=== PATIENT | male | born 1995 | race Hispanic/Latino ===

== ENCOUNTER 2023-01-15 18:52 | Emergency (ER) | payer SELFPAY ==
[2023-01-15] MEDS ORDERED: NA CHLORIDE 0.9% 1,000 ML ONE (19:47)
[2023-01-15] MEDS ORDERED: ONDANSETRON 4 MG/2 ML VIAL ONE (20:03)
[2023-01-15] MEDS ORDERED: FAMOTIDINE 20 MG/2 ML VIAL IV ONE (20:03)
[2023-01-15 20:12] LABS: Absolute Lymphocytes (CBC) 1.4 K/uL (0.7-4.9); Hematocrit 44.1 % (39.6-49.0); Lymphocytes % 12.8 % (15.3-44.8); MCV 82.5 fL (80-100); RBC Red Blood Cell Count 5.34 M/uL (4.33-5.43)
[2023-01-15 20:38] LABS: Albumin 3.9 g/dL (3.4-5.0); Bilirubin Total 0.6 mg/dL (0.2-1.0); Potassium 3.4 mEq/L (3.5-5.1); Protein, Total 7.8 g/dL (6.4-8.2)
--- NOTE | 2023-01-15 21:20 | RAD REPORT ---
EXAM DESCRIPTION: CT - Abdomen Pelvis W Contrast - 01/15/2023 8:58 pm CLINICAL HISTORY: Abdominal pain COMPARISON: none. TECHNIQUE: Computed axial tomography of the abdomen pelvis was obtained. 100 cc Isovue-300 was admin istered intravenously. Oral contrast was not requested which limits evaluation of bowel and appendix All CT scans are performed using dose optimization technique as appropriate and may include automated exposure control or mA/KV adjustment according to patient size. FINDINGS: Mild fatty infiltration. Spleen, pancreas, adrenal and kidneys appear unremarkable. There is no evidence of diverticulitis. Normal appendix Small umbilical hernia IMPRESSION: Mild fatty infiltration
[2023-01-15 21:36] LABS: Specific Gravity 1.023 (1.005-1.030); Urine Bacteria None Seen /HPF (<20); Urine Bilirubin NEGATIVE (Negative); Urine Blood Negative (Negative); Urine Clarity Clear (Clear); Urine Color Light-Yellow (Yellow); Urine Glucose NEGATIVE (Negative); Urine Mucus Slight /HPF (None Seen); Urine Protein TRACE (Negative); Urine RBC <5 /HPF (None Seen); Urine Urobilinogen Normal (Normal)
[2023-01-15] MEDS ORDERED: POTASSIUM 25 MEQ EFFERV TAB ONE (21:46)
--- NOTE | 2023-01-15 22:16 | ER ---
Nurse's Notes [facility] Name: Fermin Guerra Age: 27 yrs Sex: Male : 1995 Arrival Date: 01/15/2023 Time: 18:52 Bed 11 Private MD: Diagnosis: Nausea with vomiting, unspecified;Abdominal pain, unspecified Presentation: 01/15 19:14 Chief complaint: Patient states: abdominal pain vomiting and fever since 3 am this morning emesis x 7 today. Coronavirus screen: Vaccine status: Patient reports receiving the 1st dose of the Covid vaccine. Ebola Screen: Patient negative for fever greater than or equal to 101.5 degrees Fahrenheit, and additional compatible Ebola Virus Disease symptoms. Initial Sepsis Screen: Does the patient meet any 2 criteria? HR > 90 bpm. Does the patient have a suspected source of infection? No. Patient's initial sepsis screen is negative. Risk Assessment: Do you want to hurt yourself or someone else? Patient reports no desire to harm self or others. Onset of symptoms was January 15, 2023 at 03:00. 19:14 Method Of Arrival: Ambulatory 19:14 Acuity: ROSANNE 3 Triage Assessment: 19:16 Headache History: The patient has had previous headaches and this one is different than previous episodes, and this one is more severe than previous episodes. General: Appears ill, well groomed, well developed, Behavior is calm, cooperative. Pain: Complains of pain in head, abdominal pain generalized body aches Pain currently is 9 out of 10 on a pain scale. Also complains of inability to concentrate. Pain: Pain began gradually. 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 Gait is steady, Speech is normal, Facial symmetry appears normal, Pupils are PERRLA. Historical: - Allergies: 19:16 No Known Allergies; - Home Meds: 19:16 None [Active]; kl - PMHx: 19:16 None; - PSHx: 19:16 None; - Immunization history:: Adult Immunizations not up to date. - Social history:: Smoking status: Patient reports the use of cigarette tobacco products, smokes one pack cigarettes per day. Reported history of juuling and/or vaping. Screenin:53 [facility] ED Fall Risk Assessment (Adult) History of falling in the last 3 months, kl including since admission No falls in past 3 months (0 pts) Confusion or Disorientation No (0 pts) Intoxicated or Sedated No (0 pts) Impaired Gait No (0 pts) Mobility Assist Device Used No (0 pt) Altered Elimination No (0 pt) Score/Fall Risk Level 0 - 2 = Low Risk Oriented to surroundings, Maintained a safe environment. Abuse screen: Denies threats or abuse. Nutritional screening: No deficits noted. Tuberculosis screening: No symptoms or risk factors identified. Assessment: 19:52 Reassessment: see triage note. General: Appears ill. Pain:. kl 21:15 Reassessment: Patient appears in no apparent distress at this time. Patient is alert, kl oriented x 3, equal unlabored respirations, skin warm/dry/pink. Patient states feeling better. Patient states symptoms have improved. Vital Signs: 19:14 BP 123 / 85; Pulse 98; Resp 18; Temp 100; Pulse Ox 97% on R/A; Weight 113.4 kg; Height kl 5 ft. 7 in. ; Pain 4/10; 21:43 BP 116 / 64; Pulse 84; Resp 16; Pulse Ox 100% ; mb9 22:00 BP 113 / 64; kl 22:00 BP 99 / 51; Pulse 78; Resp 18; Temp 99(O); kl 19:14 Body Mass Index 39.16 (113.40 kg, 170.18 cm) kl 19:14 Pain Scale: Adult ED Course: 18:53 Patient arrived in ED. am2 19:05 Lars Chakraborty PA is PHCP. cp 19:05 Lars Sanchez MD is Attending Physician. cp 19:16 Triage completed. kl 19:47 Missed attempt(s): 20 gauge in right antecubital area. bc6 19:48 Missed attempt(s): 22 gauge in right forearm. bc6 19:52 Inserted saline lock: 22 gauge in right forearm, using aseptic technique. kl 19:53 Patient has correct armband on for positive identification. Bed in low position. Call kl light in reach. Side rails up X2. 21:00 CT Abd/Pelvis - IV Contrast Only In Process Unspecified. EDMS 22:39 No provider procedures requiring assistance completed. IV discontinued, intact, kl bleeding controlled, No redness/swelling at site. Pressure dressing applied. Administered Medications: 19:52 Drug: NS 0.9% IV 1000 ml Route: IV; Rate: 1 bolus; Site: right forearm; kl 21:00 Follow up: IV Status: Completed infusion; IV Intake: 1000ml kl 20:06 Drug: Famotidine IVP 20 mg Route: IVP; Site: right forearm; kl 22:40 Follow up: Response: No adverse reaction; Marked relief of symptoms kl 20:07 Drug: Ondansetron IVP 4 mg Route: IVP; Site: right forearm; kl 22:40 Follow up: Response: No adverse reaction; Marked relief of symptoms kl 21:43 Drug: Potassium PO Effervescent Tablet 25 mEq Route: PO; mb9 22:40 Follow up: Response: No adverse reaction Medication: 19:53 VIS not applicable for this client. kl Intake: 21:00 IV: 1000ml; Total: 1000ml. Outcome: 22:15 Discharge ordered by . paige 22:40 Patient left the ED. Signatures: Dispatcher [employer] EDMS Trinity Raymond RN RN Lars Qureshi PA PA Laverne Ramos Mary Beth, RN RN mb9 Wendi Celestin6
--- NOTE | 2023-01-15 22:16 | EDPHYS ---
Physician Documentation [facility] Name: Fermin Guerra Age: 27 yrs Sex: Male : 1995 Arrival Date: 01/15/2023 Time: 18:52 Bed 11 Private MD: ED Physician Lars Sanchez HPI: 01/15 19:55 This 27 yrs old Male presents to ER via Ambulatory with complaints of Fever, cp Headache, Nausea/Vomiting, bodyaches, Abdominal Pain. Historical: - Allergies: 19:16 No Known Allergies; kl - Home Meds: 19:16 None [Active]; kl - PMHx: 19:16 None; kl - PSHx: 19:16 None; kl - Immunization history:: Adult Immunizations not up to date. - Social history:: Smoking status: Patient reports the use of cigarette tobacco products, smokes one pack cigarettes per day. Reported history of juuling and/or vaping. Vital Signs: 19:14 BP 123 / 85; Pulse 98; Resp 18; Temp 100; Pulse Ox 97% on R/A; Weight 113.4 kg; Height kl 5 ft. 7 in. ; Pain 4/10; 21:43 BP 116 / 64; Pulse 84; Resp 16; Pulse Ox 100% ; mb9 22:00 BP 113 / 64; kl 22:00 BP 99 / 51; Pulse 78; Resp 18; Temp 99(O); kl 19:14 Body Mass Index 39.16 (113.40 kg, 170.18 cm) kl 19:14 Pain Scale: Adult kl MDM: 19:22 Patient medically screened. 01/15 19:54 Order name: Influenza Screen (a \T\ B); Complete Time: 22:14 01/15 22:14 Interpretation: Reviewed. 01/15 19:54 Order name: COVID-19 SARS RT PCR; Complete Time: 21:26 01/15 21:26 Interpretation: Reviewed. 01/15 19:54 Order name: CBC with Diff; Complete Time: 21:26 01/15 21:26 Interpretation: Normal except: NEO% 78.7; LYM% 12.8; NEUT A 8.4. 01/15 19:54 Order name: CMP; Complete Time: 21:26 01/15 21:26 Interpretation: Normal except: NA 133; K 3.4; GLOB 3.9; A/G 1.0. 01/15 19:54 Order name: Lipase; Complete Time: 21:26 01/15 21:26 Interpretation: Reviewed. 01/15 19:54 Order name: Urinalysis W/Microscopic; Complete Time: 22:14 cp 01/15 22:14 Interpretation: Normal except: UPROT TRACE; UESTR 75. 01/15 19:54 Order name: CT Abd/Pelvis - IV Contrast Only; Complete Time: 21:26 01/15 21:27 Interpretation: Report reviewed. 01/15 19:54 Order name: IV Saline Lock; Complete Time: 21:06 01/15 19:54 Order name: Labs collected and sent; Complete Time: 21:06 Administered Medications: 19:52 Drug: NS 0.9% IV 1000 ml Route: IV; Rate: 1 bolus; Site: right forearm; kl 21:00 Follow up: IV Status: Completed infusion; IV Intake: 1000ml kl 20:06 Drug: Famotidine IVP 20 mg Route: IVP; Site: right forearm; kl 22:40 Follow up: Response: No adverse reaction; Marked relief of symptoms kl 20:07 Drug: Ondansetron IVP 4 mg Route: IVP; Site: right forearm; kl 22:40 Follow up: Response: No adverse reaction; Marked relief of symptoms kl 21:43 Drug: Potassium PO Effervescent Tablet 25 mEq Route: PO; mb9 22:40 Follow up: Response: No adverse reaction kl Disposition Summary: 01/15/23 22:15 Discharge Ordered Location: Home cp Problem: new cp Symptoms: have improved cp Condition: Stable cp Diagnosis - Nausea with vomiting, unspecified cp - Abdominal pain, unspecified cp Followup: cp - With: Private Physician - When: 1 - 2 days - Reason: Worsening of condition Discharge Instructions: - Discharge Summary Sheet cp - Abdominal Pain, Adult cp - Nausea and Vomiting, Adult cp Forms: - Work release form kl - Medication Reconciliation Form cp - Thank You Letter cp - Antibiotic Education cp - Prescription Opioid Use cp Prescriptions: - Pepcid 20 mg Oral Tablet - take 1 tablet by ORAL route every 12 hours for 5 days; 10 tablet; Refills: 0, cp Product Selection Permitted - Zofran 4 mg Oral Tablet - take 1 tablet by ORAL route every 12 hours As needed; 20 tablet; Refills: 0, cp Product Selection Permitted Signatures: Dispatcher [employer] Trinity Hernandez, RN RN Lars Qureshi PA PA cp Breneman, Mary Beth RN RN mb9
[2023-01-15 23:07] VITALS: O2SAT 100
[2023-01-15 23:08] VITALS: BP 99/51; TEMP 99
== END 2023-01-15 22:40 | disposition home or self-care (01) ==
LOC: ER 18:52
DX: R11.2 Nausea with vomiting, unspecified (principal); R10.9 Unspecified abdominal pain
CPT/HCPCS: 36415; 74177; 80053; 81001; 83690; 85025; 87804; J2405; J7030; Q9967; U0003

== ENCOUNTER 2024-12-25 14:37 | Emergency (ER) | payer SELFPAY ==
--- OUTSIDE RECORDS SUMMARY | 2024-12-25 14:40 | XMS REPORT | Continuity of Care Document ---
Author Name Unknown Address [address] [place] [address] [facility] Address [address] [place] [address] Care Team Providers Care Director Of Provider Relations Name Role Phone Pcp, Patient Does Not Have A Primary Care Physic tiffanie Mir Ferrera DO Attending Clinician [phone] CHARANJIT RIGGS Attending Clinician Unavailable Charanjit Riggs MD Attending Clinician [phone] Magy Narayan DO Attending Clinician [phone] MAGY NARAYAN Attending Clinician UnavailCOCO Alvarez Attending Clinician Un available CHARANJIT RIGGS Admitting Clinician Unavailable Problems Condition Name Condition Details Condition Category Status Onset Date Resolution Date Last Treatment Date Treating Clinician Comments Source No known active problems No known active problems Disease [facility] Allergies, Adverse Reactions, Alerts Allergy Name Allergy Type Status Severity Reaction(s) Onset Date Inactive Date Treating Clinician Comments Source NO KNOWN ALLERGIE S Drug Class Active [facility] Social History Social Habit Start Date Stop Date Quantity Comments Source Exposure to SARS-CoV-2 (event) 2022-05-07 00:00:00 2022-05-17 12:44:00 Not sure [facility] Sex Assigned At 1995 00:00:1995 00:00:00 [facility] Smoking Status Start Date Stop Date Source Tobacco smoking consumption unknown [facility] Medications Ordered Medication Name Filled Medication Name Start Date Stop Date Current Medication? Ordering Clinician Indication Dosage Frequency Signature (SIG) Comments Components Source naproxen 500 mg tablet 05-17 00:00: 00 05-28 04:59 :00 No [id number] 500mg Take 1 tablet by mouth in the morning and 1 tablet in the evening. Take with meals. Do all this for 10 days. [facility] HYDROcodone -acetaminop hen (NORCO) 7.5-325 mg per tablet 05-17 00:00: 00 05-25 04:59 :00 No [id number] 1{tbl} Take 1 tablet by mouth every 8 (eight) hours as needed for Pain for up to 7 days. Indication s: acute pain [facility] ibuprofen (IBU) tablet 600 mg 04-06 12:30: 00 04-06 12:27 :00 No 600mg 600 mg, Oral, ONCE, 1 dose, On 04/06/22 at 0730, KALYANI [facility] No known medications 04-06 07:18: 58 No No known medication s [facility] Vital Signs Vital Name Observation Time Observation Value Comments S paco Systolic blood pressure 2022-05-17 17:53:00 130 mm[Hg] [facility] Diastolic blood pressure 2022-05-17 17:53:00 78 mm[Hg] [facility] Heart rate 2022-05-17 17:53:00 77 /min [facility] Body temperature 2022-05-17 17:53:00 37.28 Evelin [facility] Respiratory rate 2022-05-17 17:53:00 16 /min [facility] Body height 2022-05-17 17:53:00 170.2 cm [facility] Body weight 2022-05-17 17:53:00 111.131 kg [facility] BMI 2022-05-17 17:53:00 38.37 kg/m2 [facility] Oxygen saturation in Arterial blood by Pulse oximetry 2022-05-17 17:53:00 96 /min [facility] Systolic blood pressure 2022-04-06 12:19:00 158 mm[Hg] [facility] Diastolic blood pressure 2022-04-06 12:19:00 80 mm[Hg] [facility] Heart rate 2022-04-06 12:19:00 102 /min [facility] Body temperature 2022-04-06 12:19:00 38.5 Evelin [facility] Respiratory rate 2022-04-06 12:19:00 22 /min [facility] Body weight 2022-04-06 12:19:00 100.245 kg [facility] BMI 2022-04-06 12:19:00 35.67 kg/m2 [facility] Oxygen saturation in Arterial blood by Pulse oximetry 2022-04-06 12:19:00 98 /min [facility] Procedures Procedure Date / Time Performed Performing Clinicia n Source EKG-12 LEAD 2022-05-28 04:18:57 Mir Ferrera [facility] XR TIBIA FIBULA 2 VW LEFT 2022-05-17 19:58:40 Charanjit Riggs [facility] XR ANKLE 3+ VW LEFT 2022-05-17 18:54:26 Chun Riggs [facility] XR FOOT 3+ VW LEFT 2022-05-17 18:54:26 Charanjit Riggs [facility] CONSENT/REFUSAL FOR DIAGNOSIS AND TREATMENT 2022-05-17 17:51:47 Doctor Unassigned, Marana [facility] COVID-19 (ID NOW RAPID TESTING) 2022-04-06 12:25:00 Magy Narayan [facility] NOTICE OF PRIVACY PRACTICES 2022-04-06 12:12:54 Doctor Unassigned, [place] [facility] Encounters Start Date/Time End Date/Time Encounter Type Admission Type Attending Clinicians Care Facility Care Department Encounter ID Source 2022-12-10 15:26:18 2022-12-10 15:26:18 Outpatient [facility] [id number] Farhad Gentile 2022-05-27 00:00:00 2022-05-27 00:00:00 Orders Only Mir Ferrera [facility] [id number] [facility] 2022-05-17 12:56:00 2022-05-17 16:35:00 Emergency X CHARANJIT RIGGS [facility] ERT [id number] [facility] 2022-05-17 12:56:00 2022-05-17 16:35:00 Emergency Charanjit Riggs [facility] [id number] [facility] 2022-04-06 07:20:00 2022-04-06 08:01:00 Emergency Magy Narayan [facility] [id number] [facility] 2022-04-06 07:20:00 2022-04-06 08:01:00 Emergency MAGY FORDE [facility] ERT [id number] [facility] 2020-01-04 21:26:00 2020-01-05 02:04:00 Emergency COCO WARD [address] [facility] [id number]
[2024-12-25 15:13] LABS: Absolute Eosinophils 0.1 K/uL (0-0.5); Absolute Monocytes 0.6 K/uL (0.1-1.3); Absolute Neutrophil 12.5 K/uL (1.8-8.0); Basophils % 0.2 % (0-1.3); Eosinophils % 0.8 % (0-4.4); Hematocrit 44.9 % (39.6-49.0); Hemoglobin 15.7 g/dL (13.6-17.9); Lymphocytes % 7.1 % (15.3-44.8); MCH 28.7 pg (27.0-35.0); MCHC 34.9 g/dL (32.0-36.0); MCV 82.2 fL (80-100); MPV 8.2 fL (7.6-11.3); Monocytes % 4.3 % (3.3-12.3); Neutrophils % 87.6 % (41.7-73.7); Platelets 262 thou/uL (152-406); RBC Red Blood Cell Count 5.46 M/uL (4.33-5.43); Red Cell Distribution Width 13.7 % (12.1-15.2)
[2024-12-25] MEDS ORDERED: ASPIRIN 81 MG CHEWABLE TABLET ONE (15:24)
[2024-12-25] MEDS ORDERED: FAMOTIDINE 20 MG/2 ML VIAL IV ONE (15:25)
[2024-12-25] MEDS ORDERED: MORPHINE 4 MG/ML SYR ONE (15:25)
[2024-12-25 15:31] LABS: ALT/SGPT 65 U/L (16-61); AST/SGOT 24 U/L (15-37); Alkaline Phosphatase 104 U/L (45-117); Anion Gap 8.6 mEq/L (5.0-15.0); BUN Blood Urea Nitrogen 13 mg/dL (7-18); Bicarbonate 25 mEq/L (21-32); Bilirubin Direct < 0.2 mg/dL (0-0.2); Bilirubin Indirect, Calculated 0.4 mg/dL (0.2-0.8); Bilirubin Total 0.6 mg/dL (0.2-1.0); Glomerular Filtration Rate 98 ml/min (=/>90); Glucose Level 115 mg/dL (74-106); Magnesium 1.8 mg/dL (1.6-2.4); NT PRO-BNP 6 pg/mL (<125); Potassium 3.6 mEq/L (3.5-5.1); Sodium Level 136 mEq/L (136-145); Troponin High Sensitivity < 3.0 pg/mL (<58.9)
--- NOTE | 2024-12-25 15:45 | RAD REPORT ---
Procedure: Chest Single View HISTORY: Chest pain COMPARISON: none FINDINGS: The lungs appear clear of acute infiltrate. No significant pleural effusion noted. The heart is normal size. IMPRESSION: No acute abnormality is displayed.
[2024-12-25 16:00] LABS: PT Prothrombin Time 12.7 SECONDS (10-13.0); Protime INR 1.12
[2024-12-25 16:01] LABS: D-Dimer 0.234 FEUug/mL (0-0.500)
[2024-12-25 17:15] LABS: Blood Morphology Comment NOT SEEN (NOT SEEN); Platelet Estimate ADEQ; White Blood Cell Scan OK (OK)
[2024-12-25] MEDS ORDERED: METOCLOPRAMIDE 10 MG/2mL INJ ONE (17:35)
[2024-12-25] MEDS ORDERED: KETOROLAC 30 MG/ML INJ ONE (17:35)
[2024-12-25] MEDS ORDERED: NA CHLORIDE 0.9% 500 ML ONE (17:35)
--- NOTE | 2024-12-25 18:33 | ER ---
Nurse's Notes [facility] Name: Fermin Guerra Age: 29 yrs Sex: Male : 1995 Arrival Date: 12/25/2024 Time: 14:37 Bed 6 Private MD: Diagnosis: Chest pain, unspecified;Shortness of breath;Dizziness and giddiness Presentation: 12/25 14:49 Chief complaint: Patient states: Left sided chest pain, shortness of breath, dizziness cm10 and feeling like he is going to pass out onset today at 0840. Coronavirus screen: Client denies travel out of the [place] in the last 14 days. Ebola Screen: Patient denies travel to an Ebola-affected area in the 21 days before illness onset. Initial Sepsis Screen: Does the patient meet any 2 criteria? No. Patient's initial sepsis screen is negative. Does the patient have a suspected source of infection? No. Patient's initial sepsis screen is negative. Risk Assessment: Do you want to hurt yourself or someone else? Patient reports desire/thoughts of hurting themselves or someone else. Provider notified. Onset of symptoms was December 25, 2024. 14:49 Method Of Arrival: Ambulatory cm10 14:49 Acuity: ROSANNE 2 cm10 Triage Assessment: 14:51 General: Appears uncomfortable, Behavior is cooperative. Neuro: No deficits noted. cm10 Level of Consciousness is awake, alert, obeys commands, Oriented to person, place, time, situation, Appropriate for age. Neuro: Reports dizziness. Respiratory: No deficits noted. Airway is patent Respiratory effort is even, unlabored, Respiratory pattern is regular, symmetrical. Historical: - Allergies: 14:50 No Known Allergies; cm10 - PMHx: 14:50 None; cm10 - Immunization history:: Adult Immunizations up to date. - Infectious Disease History:: Denies. - Social history:: Smoking status: unknown. Screenin:00 [facility] ED Fall Risk Assessment (Adult) History of falling in the last 3 months, jl7 including since admission No falls in past 3 months (0 pts) Confusion or Disorientation No (0 pts) Intoxicated or Sedated No (0 pts) Impaired Gait No (0 pts) Mobility Assist Device Used No (0 pt) Altered Elimination No (0 pt) Score/Fall Risk Level 0 - 2 = Low Risk Oriented to surroundings, Maintained a safe environment. Abuse screen: Denies threats or abuse. Denies injuries from another. Nutritional screening: No deficits noted. Tuberculosis screening: No symptoms or risk factors identified. Assessment: 15:00 General: Appears in no apparent distress. uncomfortable, Behavior is cooperative, jl7 anxious. Pain: Complains of pain in anterior aspect of left upper chest, left breast, right upper quadrant and left upper quadrant Pain does not radiate. Pain currently is 9 out of 10 on a pain scale. Pain began gradually. Neuro: Level of Consciousness is awake, alert, obeys commands, Oriented to person, place, time, situation. Cardiovascular: Patient's skin is warm and dry. Respiratory: Airway is patent Respiratory effort is even, unlabored, Respiratory pattern is regular, symmetrical. Derm: Skin is pink, warm \T\ dry. 16:39 Reassessment: Patient appears in no apparent distress at this time. No changes from jl7 previously documented assessment. Patient and/or family updated on plan of care and expected duration. Pain level reassessed. Patient is alert, oriented x 3, equal unlabored respirations, skin warm/dry/pink. 17:30 Reassessment: Patient appears in no apparent distress at this time. No changes from jl7 previously documented assessment. Patient and/or family updated on plan of care and expected duration. Pain level reassessed. Patient is alert, oriented x 3, equal unlabored respirations, skin warm/dry/pink. Vital Signs: 14:49 BP 138 / 82; Pulse 95; Resp 14; Temp 99(O); Pulse Ox 98% on R/A; Weight 122.47 kg; cm10 Height 5 ft. 7 in. ; Pain 7/10; 15:20 BP 111 / 65; Pulse 94; Resp 15; Pulse Ox 100% ; jl7 16:38 BP 119 / 62; Pulse 84; Resp 15; Pulse Ox 97% ; jl7 19:19 BP 111 / 69; Pulse 92; Resp 16; Pulse Ox 98% ; cp4 14:49 Body Mass Index 42.29 (122.47 kg, 170.18 cm) cm10 14:49 Pain Scale: Adult cm10 ED Course: 14:40 Patient arrived in ED. cj3 14:41 Lars Chakraborty PA is PHCP. cp 14:41 Nnamdi Lemus MD is Attending Physician. cp 14:49 EKG done, by ED staff, reviewed by Nnamdi Lemus MD. zm 14:50 Triage completed. cm10 14:50 Arm band placed on right wrist. Patient placed in an exam room, on a stretcher, on cm10 monitor worker, on pulse oximetry. EKG completed in triage. Results shown to MD. 15:00 Patient has correct armband on for positive identification. Placed in gown. Bed in low jl7 position. Call light in reach. Side rails up X 1. Provided Education on: use of call salguero. Client placed on continuous cardiac and pulse oximetry monitoring. NIBP monitoring applied. surveillance system monitor on. 15:19 Prosper Francois, SALMA is Primary Nurse. jl7 15:19 Initial lab(s) drawn, by me, sent to lab. Inserted saline lock: 20 gauge in right jl7 antecubital area, using aseptic technique. Blood collected. Flushed with 10 mL NS. Patient maintains SpO2 saturation greater than 95% on room air. 15:22 XRAY Chest (1 view) In Process Unspecified. EDMS 17:22 Repeat lab(s) drawn. by me, sent to lab. em1 17:30 No provider procedures requiring assistance completed. jl7 18:32 Alexis Calderon MD is Referral Physician. cp 19:20 intact, bleeding controlled, No redness/swelling at site. Pressure dressing applied. cp4 Administered Medications: 15:32 Drug: Famotidine IVP 20 mg IVP once; dilute with 10 mL 0.9% NaCl; give over 2 minutes jl7 Route: IVP; Site: right antecubital; 16:41 Follow up: Response: No adverse reaction jl7 15:32 Drug: Aspirin PO Chewable Tablet 324 mg PO once; 81 mg tablets x 4 Route: PO; jl7 16:41 Follow up: Response: No adverse reaction jl7 15:32 Drug: morphine IVP or IV 4 mg IVP once over 4 mins Route: IVP; Infused Over: 4 mins; jl7 Site: right antecubital; 16:41 Follow up: Response: No adverse reaction jl7 17:38 Drug: Ketorolac IVP 30 mg IVP once Route: IVP; Site: right antecubital; aa5 18:13 Follow up: Response: No adverse reaction jl7 17:38 Drug: metoCLOPramide IVP 10 mg IVP once; over 1 to 2 minutes Route: IVP; Site: right aa5 antecubital; 18:13 Follow up: Response: No adverse reaction jl7 17:38 Drug: NS 0.9% IV 500 ml 500 ml IV at 1 bolus once; to be given as a bolus over 30 aa5 minutes Volume: 500 ml; Route: IV; Rate: 1 bolus; Site: right antecubital; 18:15 Follow up: Response: No adverse reaction; IV Status: Completed infusion; IV Intake: jl7 500ml Medication: 15:00 VIS not applicable for this client. jl7 Intake: 18:15 IV: 500ml; Total: 500ml. jl7 Outcome: 18:32 Discharge ordered by MD. cp 19:20 Discharged to home ambulatory, cp4 19:20 Condition: stable 19:20 Discharge instructions given to patient, family, Instructed on discharge instructions, follow up and referral plans. medication usage, Demonstrated understanding of instructions, follow-up care, medications, Prescriptions given X 1, 19:20 Patient left the ED. cp4 Signatures: Dispatcher [employer] Daquan Blackwell em1 Ivette Castillo, RN RN aa5 Lars Chakraborty PA PA cp Leal, Jahala, RN RN jl7 Rebeka Rowley Clarissa, RN RN cm10 Niki Siu cp4 Yamilet Parsons 3
--- NOTE | 2024-12-25 18:33 | EDPHYS ---
Physician Documentation [facility] Name: Fermin Guerra Age: 29 yrs Sex: Male : 1995 Arrival Date: 12/25/2024 Time: 14:37 Bed 6 Private MD: ED Physician Nnamdi Lemus HPI: 12/25 14:50 This 29 yrs old Male presents to ER via Ambulatory with complaints of Chest cp Pain, Shortness Of Breath, Dizziness. 14:50 The patient or guardian reports chest pain that is located primarily in the anterior cp chest wall, left. Associated signs and symptoms: Pertinent positives: dizziness, near-syncope, shortness of breath, Pertinent negatives: abdominal pain, cough, lower extremity pain, lower extremity swelling, fever. 14:50 The chest pain is described as a pressure. cp 14:50 Duration: The patient or guardian reports a single episode, that is still ongoing, and cp worsening. Historical: - Allergies: 14:50 No Known Allergies; cm10 - PMHx: 14:50 None; cm10 - Immunization history:: Adult Immunizations up to date. - Infectious Disease History:: Denies. - Social history:: Smoking status: unknown. ROS: 14:55 Cardiovascular: Positive for chest pain, Negative for edema, cp 14:55 Respiratory: Positive for shortness of breath, cp 14:55 Eyes: Negative for injury, pain, redness, and discharge, cp 14:55 Constitutional: Negative for body aches, chills, fever, poor PO intake, 14:55 ENT: Negative for drainage from ear(s), ear pain, sore throat, difficulty swallowing, difficulty handling secretions, 14:55 Abdomen/GI: Negative for abdominal pain, vomiting, diarrhea, constipation, 14:55 Neuro: Positive for dizziness, near syncope, Negative for altered mental status, speech changes, weakness, 14:55 All other systems are negative, Exam: 15:00 Constitutional: The patient appears in no acute distress, alert, awake, cp non-diaphoretic, non-toxic, well developed, well nourished, obese, 15:00 Head/Face: Normocephalic, atraumatic. cp 15:00 Eyes: Periorbital structures: appear normal, Conjunctiva: normal, no exudate, no injection, Sclera: no appreciated abnormality, Lids and lashes: appear normal, bilaterally, 15:00 ENT: External ear(s): are unremarkable, Nose: is normal, Mouth: Lips: moist, Oral mucosa: moist, Posterior pharynx: Airway: no evidence of obstruction, patent, 15:00 Chest/axilla: Inspection: normal, 15:00 Cardiovascular: Rate: normal, Rhythm: regular, Edema: is not appreciated, JVD: is not appreciated, 15:00 Respiratory: the patient does not display signs of respiratory distress, Respirations: normal, no use of accessory muscles, no retractions, labored breathing, is not present, Breath sounds: decreased breath sounds, are not appreciated, stridor, is not appreciated, wheezing: is not appreciated, 15:00 Abdomen/GI: Inspection: abdomen appears normal, Palpation: abdomen is soft and non-tender, in all quadrants, 15:00 Neuro: Orientation: to person, place \T\ time. Mentation: is normal, Cerebellar function: is grossly normal, Motor: moves all fours, strength is normal, Sensation: is normal, Vital Signs: 14:49 BP 138 / 82; Pulse 95; Resp 14; Temp 99(O); Pulse Ox 98% on R/A; Weight 122.47 kg; cm10 Height 5 ft. 7 in. ; Pain 7/10; 15:20 BP 111 / 65; Pulse 94; Resp 15; Pulse Ox 100% ; jl7 16:38 BP 119 / 62; Pulse 84; Resp 15; Pulse Ox 97% ; jl7 19:19 BP 111 / 69; Pulse 92; Resp 16; Pulse Ox 98% ; cp4 14:49 Body Mass Index 42.29 (122.47 kg, 170.18 cm) cm10 14:49 Pain Scale: Adult cm10 MDM: 14:43 Medical Screening Exam initiated cp 18:32 Data reviewed: vital signs, nurses notes, lab test result(s), EKG, radiologic studies, cp plain films, and as a result, I will discharge patient. 18:32 Differential diagnosis: acute myocardial infarction, cholecystitis, Cholelithiasis cp esophagitis, gastritis, pancreatitis, pericarditis, pleurisy, pneumonia, pneumothorax, pulmonary embolus, thoracic aortic disection. I considered the following discharge prescriptions or medication management in the emergency department Medications were administered in the Emergency Department. See MAR. Care significantly affected by the following chronic conditions: Obesity. 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 Response to treatment: the patient's symptoms have markedly improved after treatment, and as a result, I will discharge patient. Special discussion: Based on the patient's history, exam, and Dx evaluation, there is no indication for emergent intervention or inpatient Tx. It is understood by the patient/guardian that if the Sx's persist or worsen they need to return immediately for re-evaluation. 12/25 14:53 Order name: Basic Metabolic Panel; Complete Time: 16:06 cp 12/25 16:06 Interpretation: Normal except: GLUC 115. cp 12/25 14:53 Order name: CBC with Diff; Complete Time: 18:31 cp 12/25 16:06 Interpretation: Normal except: WBC 14.30; RBC 5.46; NEO% 87.6; LYM% 7.1; NEUT A 12.5. cp 12/25 14:53 Order name: D-Dimer; Complete Time: 16:06 cp 12/25 14:53 Order name: LFT's; Complete Time: 16:06 cp 12/25 14:53 Order name: Magnesium; Complete Time: 16:06 cp 12/25 14:53 Order name: NT PRO-BNP; Complete Time: 16:06 cp 12/25 14:53 Order name: PT-INR; Complete Time: 16:06 cp 12/25 14:53 Order name: Troponin HS; Complete Time: 16:06 cp 12/25 18:31 Interpretation: Reviewed. cp 12/25 17:08 Order name: Troponin High Sensitivity; Complete Time: 18:31 cp 12/25 18:31 Interpretation: Reviewed. cp 12/25 17:15 Order name: CBC Smear Scan; Complete Time: 18:31 EDMS 12/25 14:53 Order name: XRAY Chest (1 view); Complete Time: 16:06 cp 12/25 14:44 Order name: EKG; Complete Time: 14:44 cp 12/25 14:44 Order name: EKG - Nurse/Tech; Complete Time: 14:49 cp 12/25 14:53 Order name: Cardiac monitoring; Complete Time: 15:03 cp 12/25 14:53 Order name: IV Saline Lock; Complete Time: 15:19 cp 12/25 14:53 Order name: Labs collected and sent; Complete Time: 15:19 cp 12/25 14:53 Order name: O2 Per Protocol; Complete Time: 15:19 cp 12/25 14:53 Order name: O2 Sat Monitoring; Complete Time: 15:19 cp EC:01 Rate is 94 beats/min. Rhythm is regular. [place] interval is normal. QRS interval is normal. cp QT interval is normal. T waves are Inverted in lead aVR. Interpreted by me. Reviewed by me. Administered Medications: 15:32 Drug: Famotidine IVP 20 mg IVP once; dilute with 10 mL 0.9% NaCl; give over 2 minutes jl7 Route: IVP; Site: right antecubital; 16:41 Follow up: Response: No adverse reaction jl7 15:32 Drug: Aspirin PO Chewable Tablet 324 mg PO once; 81 mg tablets x 4 Route: PO; jl7 16:41 Follow up: Response: No adverse reaction jl7 15:32 Drug: morphine IVP or IV 4 mg IVP once over 4 mins Route: IVP; Infused Over: 4 mins; jl7 Site: right antecubital; 16:41 Follow up: Response: No adverse reaction jl7 17:38 Drug: Ketorolac IVP 30 mg IVP once Route: IVP; Site: right antecubital; aa5 18:13 Follow up: Response: No adverse reaction jl7 17:38 Drug: metoCLOPramide IVP 10 mg IVP once; over 1 to 2 minutes Route: IVP; Site: right aa5 antecubital; 18:13 Follow up: Response: No adverse reaction jl7 17:38 Drug: NS 0.9% IV 500 ml 500 ml IV at 1 bolus once; to be given as a bolus over 30 aa5 minutes Volume: 500 ml; Route: IV; Rate: 1 bolus; Site: right antecubital; 18:15 Follow up: Response: No adverse reaction; IV Status: Completed infusion; IV Intake: jl7 500ml Disposition: 20:30 Co-signature as Attending Physician, Nnamdi Lemus MD I reviewed the patient's care rt provided by the Advanced Practice Provider and agree with the diagnosis and treatment plan. Disposition Summary: 12/25/24 18:32 Discharge Ordered Notes: Location: Home cp Problem: new cp Symptoms: have improved cp Condition: Stable cp Diagnosis - Chest pain, unspecified cp - Shortness of breath cp - Dizziness and giddiness cp Followup: cp - With: Alexis Calderon MD - When: 2 - 3 days - Reason: Recheck today's complaints Discharge Instructions: - Discharge Summary Sheet cp - Nonspecific Chest Pain, Adult cp - Dizziness cp - Shortness of Breath, Adult cp - Aspirin and Your Heart cp Forms: - Medication Reconciliation Form cp - Antibiotic Education cp - Prescription Opioid Use cp - Patient Portal Instructions cp - Leadership Thank You Letter cp Prescriptions: - Anaprox DS 550 mg Oral Tablet - take 1 tablet ORAL route every 12 hours As needed; 20 tablet; Refills: 0, cp Product Selection Permitted Signatures: Dispatcher [employer] Ivette Mcgovern, RN RN aa5 Lars Chakraborty PA PA cp Prosper Francois RN RN jl7 Nnamdi Lemus MD MD rt Tiarra Rowley RN RN cm10 Corrections: (The following items were deleted from the chart) 17:48 17:01 Head Brain Wo [id number] ordered. EDMS EDMS
[2024-12-25 20:08] VITALS: TEMP 99
[2024-12-25 20:24] VITALS: BP 111/69; O2SAT 98
--- NOTE | 2024-12-27 10:52 | EKG ---
Test Date: 2024-12-25 Test Time: 14:47:06 [place]: [place] MEASUREMENT RESULTS: Intervals: Rate: 94 CO: 158 QRSD: 86 QT: 340 QTc: 425 [place]: P: 41 CO: 158 QRS: 65 T: 65 INTERPRETIVE STATEMENTS: Normal sinus rhythm Normal ECG No previous ECG available for comparison Electronically Signed On 12-27-24 10:48:27 CDT by Chidi Chandler
== END 2024-12-25 19:20 | disposition home or self-care (01) ==
LOC: ER 14:37
DX: R07.9 Chest pain, unspecified (principal); R06.02 Shortness of breath; R42 Dizziness and giddiness
CPT/HCPCS: 36415; 71045; 80048; 80076; 83735; 83880; 84484; 85025; 85379; 85610; 93005; 96361; 96374; 96375; 99285; J2765; J7040